=== PATIENT | male | born 1985 | race Caucasian/White ===

== ENCOUNTER 2020-10-16 10:17 | Emergency (ER) | payer OTHER, SELFPAY ==
[2020-10-16 10:37] VITALS: BP 138/98; PULSE 81; RESP 20; TEMP 36.3; O2SAT 98
--- NOTE | 2020-10-16 10:41 | ED.ABDPAIN ---
HPI - Abdominal Pain General Chief Complaint: Abdominal Pain Stated Complaint: LLQ pain Source: patient Mode of arrival: ambulatory Limitations: no limitations History of Present Illness HPI narrative: patient presents with some left lower abdominal pain severe started earlier today currently is subsided somewhat not as intense or sharp his left lower quadrant with some radiation into his left flank area with no dysuria no hematuria does have nausea I had a regular bowel movement earlier this morning no fever chills. MD elicited complaint: abdominal pain and flank pain Pertinent past history: none Onset (ago): hour(s) Pain Consistency: intermittent Location: LLQ and L flank Severity: moderate Quality: aching ( The intensity has subsided) Radiation: LLQ and L flank Migration to: no migration Exacerbating factors: nothing Related Data Allergies Allergy/AdvReac Type Severity Reaction Status Date / Time Penicillins Allergy Mild Verified 09/04/08 14:36 Review of Systems Review of Systems: All systems reviewed & are unremarkable except as noted in HPI and below PMFSH Past Medical History Medical History Patient denies medical problems Exam Const: General: no acute distress and alert Orientation/consciousness: patient oriented x3 HENMT: Head: normal to inspection Eyes: Conjunctivae: conjunctivae normal Pupils: Equal, round and reactive pupils present EOM: EOMs intact bilaterally Neck: Neck: normal visual inspection, no lymphadenopathy and no meningeal signs Chest: Chest palpation & inspection: normal inspection of the chest Resp: Effort & Inspection: normal respiratory effort Auscultation: clear to auscultation bilaterally Cardio: Rate: regular rate Rhythm: regular rhythm GI: GI Palp: Yes Soft to palpation and Yes Tenderness to palpation present (GI) ( left lower quadrant) Urinary Catheter: Urinary Catheter: patent and draining Back/Spine/Pelvis: Back: CVA tenderness Skin: General skin exam: normal color Rashes: no rashes Neuro: General: patient oriented x3 and moves all extremities Psych: Mental Status: mental status grossly normal Course Course Emergency Course: after evaluation of patient he decided that he did not want any extensive workup he refuse any interventions and decided to leave against medical advice. Critical Care Time Critical Care Time Critical Care Time: No Discharge Plan Discharge Clinical Impression: Abdominal pain Qualifiers: Abdominal location: left lower quadrant Qualified Code(s): R10.32 - Left lower quadrant pain Patient Disposition: Left Against Medical Advice Condition: Stable Instructions: Abdominal Pain (ED) Additional Instructions: patient left against medical advice. Follow-up/Referrals: PHYSICIAN NOT ON STAFF,NONSTAFF [Primary Care Provider] - Time of Disposition: 10:45
== END 2020-10-16 10:46 | disposition left against medical advice (07) ==
PROVIDERS: Emergency Provider Emergency Medicine
DX: R10.32 Left lower quadrant pain (principal)
CPT/HCPCS: 99281; 99282